=== PATIENT | male | born 1995 | race Caucasian/White ===

== ENCOUNTER 2020-05-08 14:12 | Emergency (ER) | payer OTHER ==
[~2020-05-08] VITALS: Ht 177.8 cm; Wt 70.3 kg
[2020-05-08] MEDS ORDERED: Methocarbamol 750mg tab ORAL ONE (14:45)
[2020-05-08] MEDS ORDERED: Ketorolac 30mg Inj IM ONE (14:45)
[2020-05-08 14:53] VITALS: BP 119/72
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
[2020-05-08] MEDS ORDERED: LIDODERM700 M1 TOPIC (16:10)
[2020-05-08] MEDS ORDERED: IBUPROFEN600 M1 ORAL (16:10)
[2020-05-08] MEDS ORDERED: ROBAXIN-500MG ORAL (16:10)
[2020-05-08] MEDS ORDERED: ZOFRAN4 M3 SL (16:17)
--- NOTE | 2020-05-08 16:20 | NUR ---
ED Nurse Note: Pt cleared by health care Provider for discharge. DC instructions/prescription was given and explained to pt and verbalized understanding of teachings. All medical deviecs such as ID band removed. Pt is AAO x4, ambulatory and left with all personal belongings.
[2020-05-08 16:30] VITALS: BP 119/72
--- NOTE | 2020-05-08 16:35 | Diagnostic Imaging Report ---
Indication: Reason For Exam: TRAUMA, pain Technique: XRAY L Spine Ltd Comparison: None. Findings: Alignment is intact. There is no fracture. There is no evidence of bone destruction. The discs are maintained. Impression: Normal.
--- NOTE | 2020-05-08 16:36 | Diagnostic Imaging Report ---
Indication: Reason For Exam: TRAUMA pain Technique: XRAY C Spine 2-3v Comparison: None. Findings: Alignment is intact. There is no fracture. There is no evidence of bone destruction. The discs are maintained. Impression: Normal.
== END 2020-05-08 16:20 | disposition home or self-care (01) ==
LOC: EMR 14:56
DX: S16.1XXA Strain of muscle, fascia and tendon at neck level, initial encounter (principal); S39.012A Strain of muscle, fascia and tendon of lower back, initial encounter; V43.52XA Car driver injured in collision with other type car in traffic accident, initial encounter; Y92.9 Unspecified place or not applicable; R11.0 Nausea
CPT/HCPCS: 72020; 72040; 99284